=== PATIENT | male | born 1955 | race Hispanic/Latino ===

== ENCOUNTER 2021-06-23 20:57 | Inpatient (IN) | payer MEDICARE ==
[2021-06-28 12:49] VITALS: BP 154/91
== END 2021-06-28 18:00 | disposition home or self-care (01) | DRG 175 ==
LOC: ED 20:57 → 3A 06-24 01:47 → OBSVTOIN 06-24 08:17 → 4A 06-24 16:09
PROVIDERS: ADMIT Hospitalist; ATTEND Internal Medicine
PROC: 5A09357 Assistance with Respiratory Ventilation, Less than 24 Consecutive Hours, Continuous Positive Airway Pressure (ICD-10-PCS; principal; 2021-06-24)
PROC: 5A09357 Assistance with Respiratory Ventilation, Less than 24 Consecutive Hours, Continuous Positive Airway Pressure (ICD-10-PCS; 2021-06-26)
DX: I26.93 Single subsegmental thrombotic pulmonary embolism without acute cor pulmonale (principal); J96.01 Acute respiratory failure with hypoxia; I50.33 Acute on chronic diastolic (congestive) heart failure; I13.0 Hypertensive heart and chronic kidney disease with heart failure and stage 1 through stage 4 chronic kidney disease, or unspecified chronic kidney disease; I47.2 Ventricular tachycardia; Z68.42 Body mass index [BMI] 45.0-49.9, adult; E66.01 Morbid (severe) obesity due to excess calories; M10.9 Gout, unspecified; G47.33 Obstructive sleep apnea (adult) (pediatric); R07.81 Pleurodynia; E78.2 Mixed hyperlipidemia; K21.9 Gastro-esophageal reflux disease without esophagitis; E11.22 Type 2 diabetes mellitus with diabetic chronic kidney disease; N18.9 Chronic kidney disease, unspecified; Z86.73 Personal history of transient ischemic attack (TIA), and cerebral infarction without residual deficits; Z87.891 Personal history of nicotine dependence; Z88.8 Allergy status to other drugs, medicaments and biological substances; Z86.16 Personal history of COVID-19
CPT/HCPCS: 36415; 71045; 80048; 80053; 81001; 82140; 82728; 82962; 83615; 83880; 84145; 84484; 85014; 85018; 85025; 85027; 85379; 85520; 85610; 85730; 86140; 87040; 93005; 93306; 94640; 94760; G0378; A9270-GY; J0360; J0456; J0696; J1100; J1644; J1815; J1940; J2405; U0003